=== PATIENT | female | born 1955 | race African-American/Black ===

== ENCOUNTER 2016-09-27 03:41 | Emergency (ER) | payer MEDICAID ==
--- NOTE | 2016-09-27 04:25 | ED Physician Chart ---
Chief Complaint/HPI - Patient Information Date Seen:: 09/27/16 Time Seen:: 04:06 Chief Complaint:: Toothache since last evening. History of Present Illness:: C/O toothache in R lower 2nd molar tooth for about 3 weeks. Pt also noticed swelling in R lower jaw since last evening. No fever. Taking po well without N/V /D. No lightheadedness. Last analgesic use was at 11:30 last evening with Tylenol. Pt states that she has pending dental clinic appointment at [facility] later today at 2 pm. Allergies:: Allergies Allergy/AdvReac Type Severity Reaction Status Date / Time No Known Allergies Allergy Verified 09/27/16 03:47 Vitals:: Vital Signs - 8 hr 09/27/16 03:41 Temp 97.5 F HR 98 RR 20 BP 142/90 O2 Sat % 96 Historian:: Patient Family MD/PCP:: unknown LMP:: Postmenopausal. Review:: Nurse's Note Reviewed Review of Systems - Review of Systems General/Constitutional: No fever, No chills, No weight loss, No weakness, No diaphoresis, No edema, No loss of appetite Skin: Skin lesions Head: No headache, No light-headedness Eyes: No loss of vision, No pain, No diplopia ENT: No earache, No nasal drainage, No sore throat, No tinnitus, Other ( Toothache in R lower jaw.) Neck: No neck pain, No swelling, No thyromegaly, No stiffness, No mass noted Cardio Vascular: No chest pain, No palpitations, No PND, No orthopnea, No edema Pulmonary: No SOB, No cough, No wheezing GI: No nausea, No vomiting, No diarrhea, No pain Musculoskeletal: No bone or joint pain, No back pain, No muscle pain Endocrine: No polyuria, No polydipsia Psychiatric: No prior psych history Hematopoietic: Bruising Allergic/Immuno: Urticaria Neurological: No syncope, No focal symptoms, No weakness, No paresthesia, No headache, No seizure, No dizziness, No confusion Past Medical History - Past Medical History Past Medical History: No significant medical hx Family History: Heart disease ( mother), HTN (mother) Social History: Non Smoker, No Alcohol, No Drug Use, Single, Other (lives with her roommate) Employment:: unemployed. Surgical History: Hysterectomy (in mid 1980's) Psychiatricy History: None Medication: Reviewed Family Medical History - Family Member Mother Ethnicity: Non- Living Status: Hx Family Coronary Artery Disease: Yes Hx Family Hypertension: Yes FATHER History Unknown: Yes Ethnicity: Non- Hx Family Coronary Artery Disease: Yes (PT'S DAD FROM HEART ATTACK) Physical Exam - Physical Examination General/Constitutional: Awake, Well-developed, well-nourished, Alert, No distress, GCS 15, Non-toxic appearing, Ambulatory Other Gen/Cons comments:: Breathes comfortably, speaks clearly, interacts normally, and ambulates without difficulty. Head: Atraumatic Eyes: Lids, conjuctiva normal, PERRL, EOMI Skin: Nl inspection, No rash, No skin lesions, No ecchymosis, Well hydrated, No lymphadenopathy ENMT: External ears, nose nl, Nasal exam nl, Oropharynx nl ( except there is swelling noticed in R submandibular region. No crepitus, erythema, or unusual warmth. No exudate.), Tonsils nl Other ENMT comments:: There is tenderness with discoloration of R lower 2nd molar tooth. No gum swelling or pain. No exudate. Neck: Nontender, Full ROM w/o pain, No nuchal rigidity, No mass, No stridor Respiratory: Nl effort/Exclusion, Clear to Auscultation, No Wheeze/Rhonchi/Rales Cardio Vascular: RRR, No murmur, gallop, rubs GI: No tenderness/rebounding/guarding, No organomegaly, No hernia, Normal BS's, Nondistended, No mass/bruits, No McBurney tenderness Other GI comments:: abdomen is soft. Extremities: No edema Neuro/Psych: Alert/oriented (oriented x 3.), Judgement/insight normal, Mood normal, Normal gait, No focal deficits Labs/Radiology/EKG Results - Lab Results Results: Laboratory Tests 09/27/16 09/27/16 09/27/16 04:43 04:43 04:43 WBC 8.2 D RBC 3.95 Hgb 12.3 Hct 35.6 MCV 90.3 MCH 31.1 H MCHC Differential 34.4 RDW 13.2 Plt Count 245 MPV 7.8 Neutrophils % 66.3 Lymphocytes % 25.3 Monocytes % 6.4 Eosinophils % 1.5 Basophils % 0.5 PT 10.2 INR 0.98 PTT (Actin FS) 28.2 Sodium 141 Potassium 3.4 L Chloride 111 H Carbon Dioxide 23.0 Anion Gap 10.4 BUN 26 H Creatinine 0.7 Est GFR ( Amer) > 60.0 Est GFR (Non-Af Amer) > 60.0 BUN/Creatinine Ratio 37.1 Glucose 97 Calcium 9.6 ED Septic Shock - . Is Septic Shock (SBP<90, OR Lactate>4 mmol\L) present?: No - <6hrs of presentation: Vital Signs: Vital Signs - 8 hr 09/27/16 03:41 Temp 97.5 F HR 98 RR 20 BP 142/90 O2 Sat % 96 Reassessment (Disposition) - Reassessment Reassessment:: 0634 Pt feels much better. R submandibular swelling has lessened. Pt requests to go home now and does not want further observation/management in hospital. Aftercare instructions have been given. Reassessment Condition:: Improved - Diagnosis Diagnosis:: Pulpitis in R lower 2nd molar tooth with associated R submandibular sialadenitis , stable. - Aftercare/Follow up Instructions Aftercare/Follow-Up Instructions:: Refer to Discharge Instructions Notes:: Push oral fluid. Increase oral intake of potassium rich foodstuffs. Avoid extremely hot or cold food or liquid. Use lemon drop as directed. May take Tylenol 500 mg tab one tab po q6h prn pain. F/U at Dental Clinic at [facility] as scheduled this afternoon at 2 pm. F/U also with Dr. Villalobos or PCP of pt's choice in one day for recheck with repeat lab study: BMP. Return to ER immediately if condition worsens or if any further questions/ problems. Medication Prescribed:: Clindamycin 300 mg tab one tab po q6h for 10 days. D-40 R-0 - Patient Disposition Discharge/Transfer:: Home Time:: 06:35 Condition at Disposition:: Stable, Improved
[2016-09-27 05:02] LABS: % BASOPHILS 0.5 % (0.0-2.0); % EOSINOPHILS 1.5 % (0.0-5.0); % LYMPHOCYTES 25.3 % (20.0-50.0); % MONOCYTES 6.4 % (2.0-10.0); % NEUTROPHILS 66.3 % (40.0-80.0); HEMATOCRIT 35.6 % (35.0-45.0); HEMOGLOBIN 12.3 gm/dL (11.7-15.5); MEAN CELL VOLUME 90.3 fl (81-100); MEAN CORPUSCULAR HEMOGLOBIN 31.1 pg (27.0-31.0); MEAN CORPUSCULAR HGB CONC 34.4 pg (28.0-36.0); MEAN PLATELET VOLUME 7.8 fl; NEUTROPHILE ABSOLUTE 5.5 Th/cmm (1.8-8.0); PLATELET COUNT 245 Th/cmm (150-400); RED BLOOD COUNT 3.95 Mil/cmm (3.80-5.10); RED CELL DISTRIBUTION WIDTH 13.2 % (11.5-20.0)
[2016-09-27 05:06] LABS: WHITE BLOOD COUNT 8.2 Th/cmm (4.8-10.8)
[2016-09-27 05:09] LABS: INR 0.98 (0.5-1.4); PROTHROMBIN TIME (TEST) 10.2 SECONDS (9.5-11.5)
[2016-09-27 05:12] LABS: ANION GAP 10.4 (7.0-16.0); BUN - UREA NITROGEN 26 mg/dL (7-25); BUN/CREATININE RATIO 37.1; CALCIUM SERUM 9.6 mg/dL (8.6-10.3); CHLORIDE 111 mEq/L (98-107); CREATININE - SERUM 0.7 mg/dL (0.6-1.2); GLUCOSE 97 mg/dL (70-105); POTASSIUM SERUM 3.4 mEq/L (3.5-5.1); SODIUM SERUM 141 mEq/L (136-145)
[2016-09-27] MEDS ORDERED: Potassium Chloride 20 mEq ER Tab PO ONE (05:55)
[2016-09-27] MEDS: Potassium Chloride 20 mEq ER Tab PO ONE (05:58)
== END 2016-09-27 07:05 | disposition home or self-care (01) ==
LOC: ER 03:41
DX: K04.01 Reversible pulpitis (principal); K11.20 Sialoadenitis, unspecified
CPT/HCPCS: 99284; 96374; 36415; 85025; 85610; 80048; J1885; Z7502; Z7610